=== PATIENT | male | born 1965 | race Caucasian/White ===

== ENCOUNTER → 2020-02-08 11:45 | Outpatient (BNVA) | payer OTHER, SELFPAY | PROVIDERS: Visit Provider Physician Assistant Medical | DX: M25.562 Pain in left knee (principal); S86.112A Strain of other muscle(s) and tendon(s) of posterior muscle group at lower leg level, left leg, initial encounter; X58.XXXA Exposure to other specified factors, initial encounter | CPT/HCPCS: 99202 ==

== ENCOUNTER → 2020-02-12 12:51 | Outpatient (BNVA) | payer OTHER, SELFPAY | PROVIDERS: Visit Provider Physician Assistant | DX: S86.812A Strain of other muscle(s) and tendon(s) at lower leg level, left leg, initial encounter (principal); S83.92XA Sprain of unspecified site of left knee, initial encounter; X58.XXXA Exposure to other specified factors, initial encounter | CPT/HCPCS: 99213 ==

== ENCOUNTER → 2020-02-27 13:57 | Outpatient (BNVA) | payer OTHER, SELFPAY | PROVIDERS: Visit Provider Physician Assistant | DX: S83.412D Sprain of medial collateral ligament of left knee, subsequent encounter (principal); X58.XXXD Exposure to other specified factors, subsequent encounter | CPT/HCPCS: 99213 ==

== ENCOUNTER → 2020-03-12 14:07 | Outpatient (BNVA) | payer OTHER, SELFPAY | PROVIDERS: Visit Provider Physician Assistant | DX: M25.562 Pain in left knee (principal) | CPT/HCPCS: 99213 ==

== ENCOUNTER → 2020-04-02 13:46 | Outpatient (BNVA) | payer OTHER, SELFPAY | PROVIDERS: Visit Provider Internal Medicine | DX: M25.562 Pain in left knee (principal) | CPT/HCPCS: 73564; 99214 ==

== ENCOUNTER → 2022-11-16 08:16 | Outpatient (BNVA) | payer OTHER, SELFPAY | PROVIDERS: Visit Provider Internal Medicine | DX: M25.562 Pain in left knee (principal); M25.462 Effusion, left knee | CPT/HCPCS: 99203 ==

== ENCOUNTER → 2022-11-20 15:37 | Outpatient (BNVA) | payer OTHER, SELFPAY | PROVIDERS: Visit Provider Internal Medicine | DX: M23.92 Unspecified internal derangement of left knee (principal); M25.462 Effusion, left knee | CPT/HCPCS: 99213 ==

== ENCOUNTER → 2022-12-08 09:24 | Outpatient (BNVA) | payer OTHER, SELFPAY | PROVIDERS: Visit Provider Internal Medicine | DX: M23.92 Unspecified internal derangement of left knee (principal) | CPT/HCPCS: 99213 ==

== ENCOUNTER → 2023-01-06 07:49 | Outpatient (BNVA) | payer OTHER, SELFPAY | PROVIDERS: Visit Provider Internal Medicine | DX: M23.92 Unspecified internal derangement of left knee (principal) | CPT/HCPCS: 99213 ==

== ENCOUNTER → 2023-01-20 07:43 | Outpatient (BNVA) | payer OTHER, SELFPAY | PROVIDERS: Visit Provider Internal Medicine | DX: S80.02XD Contusion of left knee, subsequent encounter (principal); X58.XXXD Exposure to other specified factors, subsequent encounter | CPT/HCPCS: 99213 ==

== ENCOUNTER → 2023-01-26 09:49 | Outpatient (BNVA) | payer OTHER, SELFPAY | PROVIDERS: Visit Provider Internal Medicine | DX: S67.192A Crushing injury of right middle finger, initial encounter (principal); S60.131A Contusion of right middle finger with damage to nail, initial encounter; S62.632B Displaced fracture of distal phalanx of right middle finger, initial encounter for open fracture; W20.8XXA Other cause of strike by thrown, projected or falling object, initial encounter | CPT/HCPCS: 11740; 99203 ==

== ENCOUNTER → 2023-01-29 10:22 | Outpatient (BNVA) | payer OTHER, SELFPAY | PROVIDERS: Visit Provider Physician Assistant | DX: S62.602D Fracture of unspecified phalanx of right middle finger, subsequent encounter for fracture with routine healing (principal); S60.131D Contusion of right middle finger with damage to nail, subsequent encounter; X58.XXXD Exposure to other specified factors, subsequent encounter | CPT/HCPCS: 99214 ==

== ENCOUNTER 2023-02-04 09:36 | Outpatient (AMB) | payer OTHER, SELFPAY ==
--- NOTE | 2023-02-04 09:41 | MHC.OFFVIS ---
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 Patient reports his finger got crushed by a heavy panel at work. He states that he was on 2 antibiotics which helped with his pain and swelling. 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 The patient reports his finger got crushed by a heavy panel at work. He states he was taking 2 antibiotics which helped with his pain and swelling. Patient works in shipping. [facility] Social History (Updated 02/04/23 @ 09:54 by Hermelinda Garcia) Alcohol intake: former Patient Tobacco Use Status: Former Tobacco user Current occupational status: employed Current occupation: shipping depatment Review of Systems Const All systems reviewed & are unremarkable except as noted in HPI and below Physical Exam Vital Signs: BMI result Body Mass Index 23.6 Const General: cooperative and no acute distress Orientation/consciousness: patient oriented x3 Resp Effort & Inspection: normal respiratory effort and able to speak in complete sentences Cardio Peripheral pulses: Peripheral pulses 2+ throughout Skin General skin exam: no rashes or lesions noted Neuro General: patient oriented x3 Extrem Other: Right 3rd finger: Nail bed disruption with small incision just proximal to the nail bed before the DIP. No surrounding erythema or drainage. No signs of infection. Able to flex and extend at the DIP, PIP, and CMC joint. Sensation intact. Assessment & Plan Assessment & Plan (1) Fracture of distal phalanx of right middle finger: Code(s): S62.632A - Displaced fracture of distal phalanx of right middle finger, initial encounter for closed fracture Qualifiers: Encounter type: initial encounter Fracture alignment: nondisplaced Fracture type: open Qualified Code(s): S62.662B - Nondisplaced fracture of distal phalanx of right middle finger, initial encounter for open fracture Plan Mr. Rosenthal is a 57-year-old right hand dominant male who presents in the office today, as a new patient, for an evaluation of right 3rd digit pain. The patient reports his finger got crushed by a heavy panel at work. He states he was taking 2 antibiotics which helped with his pain and swelling. Patient works in shipping. The patient will continue to take the antibiotics until he has completed his entire course. He was given an out of work note until follow up. Follow up will be in 1 week, or sooner if needed. X-rays of the right hand which were obtained while in the office today and were reviewed by me, Netta Jeo PA-C, revealed distal phalanx fracture right middle finger. Orders: Orders XR hand RT min 3V Today M79.643 - Pain in unspecified hand Patient Instructions: Scribed for Netta Joe PA-C by Tatum Hopson biomedical specialist, on 02/04/2023 at 9:38 am, EST. Coding Level of Care Code New Pt Level 4 (26006) Diagnoses Open nondisplaced fracture of distal phalanx of right middle finger, initial encounter S62.662B Encounter type: initial encounter Fracture alignment: nondisplaced Fracture type: open
[2023-02-04 09:54] VITALS: BMI 23.6
== END 2023-02-04 10:17 | disposition home or self-care (01) ==
PROVIDERS: Visit Provider Physician Assistant
DX: S62.662B Nondisplaced fracture of distal phalanx of right middle finger, initial encounter for open fracture (principal); W23.2XXA Caught, crushed, jammed or pinched between a moving and stationary object, initial encounter; Y99.0 Civilian activity done for income or pay; Z04.2 Encounter for examination and observation following work accident
CPT/HCPCS: 99204

== ENCOUNTER 2023-02-04 11:51 | Outpatient (REF) | payer OTHER, SELFPAY ==
--- NOTE | ~2023-02-04 | XR_ITS ---
EXAMINATION: XR HAND, RIGHT CLINICAL INFORMATION: Pain in unspecified hand COMPARISON: None available. TECHNIQUE: PA, lateral, and oblique views of the right hand. FINDINGS: There is a comminuted fracture of the distal phalanx of the middle finger which is mostly nondisplaced except for a few small fragments along the dorsal aspect of the distal proximal phalanx. Associated soft tissue swelling is noted. Joint spaces are maintained. XR/XR hand RT min 3V IMPRESSION: Comminuted fracture of the distal phalanx of the middle finger.
== END 2023-02-04 11:52 | disposition home or self-care (01) ==
LOC: HO.HOSX 11:51
PROVIDERS: Visit Provider Physician Assistant
DX: S62.662B Nondisplaced fracture of distal phalanx of right middle finger, initial encounter for open fracture (principal)
CPT/HCPCS: 73130; 99202

== ENCOUNTER 2023-02-09 14:55 | Outpatient (AMB) | payer OTHER, SELFPAY ==
--- NOTE | 2023-02-09 15:04 | MHC.OFFVIS ---
Intake Vital Signs 02/09/23 15:05 Height 5 ft 9 in Weight 160 lb BMI 23.6 Intake Visit Reasons: OV-rt RF crush injury-wound check 01/12/23 Intake Note: Romaine is a 57 year old right hand dominant male who presents today for a wound check of his right 3rd finger pain, DOI 01/22/23. Patient reports doing well but having some discomfort. ROM is getting better. Allergies Penicillins Allergy (Intermediate, Verified 02/09/23 15:05) Nausea and Vomiting HPI OV-rt RF crush injury-wound check 01/12/23 HPI Details 57-year-old right hand dominant male who presents in the office today for a wound check and follow up of a right middle distal phalanx fracture, which occurred on 01/22/2023 while at work. REPLACED BY [facility] Social History Alcohol intake: former Patient Tobacco Use Status: Former Tobacco user Current occupational status: employed Current occupation: shipping depatment Review of Systems Const All systems reviewed & are unremarkable except as noted in HPI and below Physical Exam Vital Signs: BMI result Body Mass Index 23.6 Const General: cooperative, healthy appearing and no acute distress Orientation/consciousness: patient oriented x3 Resp Effort & Inspection: normal respiratory effort and able to speak in complete sentences Cardio Rate: regular rate Peripheral pulses: Peripheral pulses 2+ throughout GI Palpation (GI): Soft to palpation Skin General skin exam: no rashes or lesions noted Lesions: no lesions Rashes: no rashes Neuro General: patient oriented x3 Extrem Other: Right 3rd finger: Nail bed disruption with the nail from the cuticle. No surrounding erythema or drainage. No signs of infection. Able to flex and extend at the DIP, PIP, and CMC joint. Sensation intact. Assessment & Plan Assessment & Plan (1) Fracture of distal phalanx of right middle finger: Code(s): S62.632A - Displaced fracture of distal phalanx of right middle finger, initial encounter for closed fracture Qualifiers: Encounter type: initial encounter Fracture alignment: nondisplaced Fracture type: open Qualified Code(s): S62.662B - Nondisplaced fracture of distal phalanx of right middle finger, initial encounter for open fracture Plan Mr. Rosenthal is a 57-year-old right hand dominant male who presents in the office today for a wound check and follow up of a right middle distal phalanx fracture, which occurred on 01/22/2023 while at work. The patient may return to work on Wednesday02/15/2023. If this is to difficult with gripping activities for him he can let me know and we will return him to out of work status. If this occurs I would like to see him 2 weeks after being taken out of work. Otherwise, I have recommended for the patient to wear a glove while he is work, as he works in shipping, in order to protect the nail bed. Follow up will be PRN, or sooner if needed. Patient Instructions: Scribed for Netta Joe PA-C by Tatum Hopson medical technologist blood bank, on 01/26/2023 at 2:58 pm, EST. Coding Level of Care Code Global (91020) Diagnoses Open nondisplaced fracture of distal phalanx of right middle finger, initial encounter S62.662B Encounter type: initial encounter Fracture alignment: nondisplaced Fracture type: open
[2023-02-09 15:05] VITALS: BMI 23.6
== END 2023-02-09 15:27 | disposition home or self-care (01) ==
PROVIDERS: Visit Provider Physician Assistant
DX: S62.662B Nondisplaced fracture of distal phalanx of right middle finger, initial encounter for open fracture (principal)
CPT/HCPCS: 99213

== ENCOUNTER → 2023-02-09 14:55 | Outpatient (BNVA) | payer OTHER, SELFPAY | PROVIDERS: Visit Provider Physician Assistant | DX: S62.662B Nondisplaced fracture of distal phalanx of right middle finger, initial encounter for open fracture (principal); T81.33XA Disruption of traumatic injury wound repair, initial encounter; W23.0XXA Caught, crushed, jammed, or pinched between moving objects, initial encounter; Y93.9 Activity, unspecified; Y92.69 Other specified industrial and construction area as the place of occurrence of the external cause; Y99.0 Civilian activity done for income or pay | CPT/HCPCS: 99212 ==